=== PATIENT | female | born 1985 | race Caucasian/White ===

== ENCOUNTER 2017-07-18 06:43 | Day surgery (SDC) | payer OTHER ==
[~2017-07-18] VITALS: Ht 177.8 cm; Wt 117.5 kg
[2017-07-18] MEDS ORDERED: ZOLOFT50 MG PO (07:21)
--- NOTE | 2017-07-18 10:09 | NUR ---
07/18/17 Yue Fajardo 0953 PT ARRIVED TO PACU RESP EVEN AND UNLABORED. REPORT FROM MANAGER DOCUMENTATION 1006 PT O2 SAT 100% ON 10L VIA MASK, O2 DECREASED TO 6L.
[2017-07-18] MEDS ORDERED: IBUPROFEN800 MG PO (12:06)
[2017-07-18] MEDS ORDERED: NORCO 5-325 TA1 EACH PO (12:06)
--- NOTE | 2017-07-18 12:13 | NUR ---
HAS AMB HALLWAY,VOIDS 200MLS. TAKING PO WELL. JELLO WATER AND CRACKERS. RATES PAIN AT 2/10 DENIES NEED FOR PAIN MED.
--- NOTE | 2017-08-04 08:42 | OR ---
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 POSTOPERATIVE DIAGNOSIS: Carcinoma in situ of the cervix, pending pathology. PROCEDURE: Cone biopsy with ECC. ANESTHESIA: General LMA. ESTIMATED BLOOD LOSS: 50 mL. DRAINS: None. INDICATIONS AND FINDINGS: The patient is a 31-year-old female who has a history of OMI 3 and a negative ECC who underwent a LEEP procedure in June, but was found to have positive deep margins on the actual specimen. Because of this, it was felt that further treatment is needed. At the time of surgery, the exocervix appeared normal. The patient did have a Mirena in place, which the string was cut initially during her LEEP. It was found again during this procedure. DESCRIPTION OF PROCEDURE: The patient was prepped and draped in the dorsal lithotomy position. The swan neck speculum was placed in the posterior cul-de-sac, as the shorter speculums were inadequate. The cervix was visualized and grasped on the anterior lip with a single-tooth tenaculum. Stay sutures were placed at 3 and 9 o'clock with [id number]-et-zaifk sutures of 0 Chromic. The exocervix was then stained with Lugol's. The exocervix did stain completely. The cone biopsy was done sharply with a knife and this was done circumferentially. This was marked at the 12 o'clock position after removal. The depth of the cone was approximately 1.5 cm. Following this, the base was treated with cautery. The ECC was then done with a small amount of tissue and at this point, the Mirena came out of the uterine cavity. It was preserved for use later. Following this, further cautery was used on the base of the cone to control bleeding. There did appear to be a persistent area on the posterior aspect at approximately 5 o'clock, which required several additional sutures of 2-0 chromic as well as 0 chromic. These were placed in a [id number] manner coming from the internal aspect of the cone to the exocervix posteriorly. Eventually, good hemostasis was noted. Following this, the cavity was sounded to 9 cm. The Mirena was then replaced in the fundus of the uterus. The strings Electronically Signed By: ITA RODGERS MD 08/04/17 0842 PATIENT NAME: HOWARD TAVAREZ OPERATIVE REPORT DATE OF : 85 PHYSICIAN: ITA RODGERS MD REPORT #: [id number] REPORT IS CONFIDENTIAL AND NOT TO BE RELEASED WITHOUT AUTHORIZATION [facility] [address] [place], [place] [address] Signed remained visible. The base of the cone was then treated with Monsel's solution. There was still slight ooze in the posterior aspect and it was felt that Evicel would be helpful for controlling hemostasis. This was sprayed over the base of the cone. This was followed by packing the base of the cone with Gelfoam and the stay sutures were tied across as well. There was no bleeding from the previous tenaculum site. The speculum was removed. The patient was taken to the recovery room in good condition. Ita Rodgers MD PJW/MODL /[id number] cc: Raji Holloway MD Electronically Signed By: ITA RODGERS MD 08/04/17 0842 PATIENT NAME: HOWARD TAVAREZ OPERATIVE REPORT DATE OF : 85 PHYSICIAN: ITA RODGERS MD REPORT #: [id number] REPORT IS CONFIDENTIAL AND NOT TO BE RELEASED WITHOUT AUTHORIZATION
== END 2017-07-18 12:15 | disposition home or self-care (01) ==
LOC: DS 06:43
PROVIDERS: Obstetrics & Gynecology
PROC: 0UBC8ZX Excision of Cervix, Via Natural or Artificial Opening Endoscopic, Diagnostic (ICD-10-PCS; principal; 2017-07-18 08:15)
DX: D06.9 Carcinoma in situ of cervix, unspecified (principal); F41.9 Anxiety disorder, unspecified; E66.9 Obesity, unspecified; G43.909 Migraine, unspecified, not intractable, without status migrainosus; Z68.37 Body mass index [BMI] 37.0-37.9, adult; Z79.899 Other long term (current) drug therapy; Z30.431 Encounter for routine checking of intrauterine contraceptive device
CPT/HCPCS: 00940; 84703; 85025; J1100; J1885; J2250; J2405; J2704; J2765; J3010; J7120